=== PATIENT | female | born 2000 | race Caucasian/White ===

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

== ENCOUNTER → 2022-04-01 | Outpatient (CLI) | payer BC ==
[~2022-04-01] MED LIST: TAYTULLA 1 MG-1 EACH PO
[2022-04-01 14:17] LABS: BASO # 0.12 K/mm3 (0.02-0.10); EOS # 0.75 K/mm3 (0.04-0.40); HEMOGLOBIN 15.1 g/dL (12.0-15.0); LYMPH# 2.19 K/mm3 (1.20-3.40); MEAN CELL VOLUME 94 fl (78-95); MEAN CORPUSCULAR HEMOGLOBIN 31 pg (26-32); MEAN CORPUSCULAR HGB CONC 33 g/dL (33-37); MEAN PLATELET VOLUME 9.8 fl (7.4-10.4); PLATELET COUNT 277 K/mm3 (130-400); RED CELL DISTRIBUTION WIDTH 11.8 % (11.5-14.5); WHITE BLOOD COUNT 10.7 K/mm3 (4.8-10.8)
[2022-04-01 14:25] LABS: ALBUMIN 4.3 g/dL (3.5-5.0); POTASSIUM 4.1 mmol/L (3.5-5.1); SODIUM 137 mmol/L (136-145)
[2022-04-01 14:26] LABS: CALCIUM 9.5 mg/dL (8.3-10.5)
[2022-04-01 14:28] LABS: GLUCOSE 83 mg/dL (65-105); TOTAL PROTEIN 7.3 g/dL (6.4-8.3)
[2022-04-01 14:29] LABS: CARBON DIOXIDE 25 mmol/L (22-29); TOTAL BILIRUBIN 0.3 mg/dL (0.2-1.2)
[2022-04-01 14:33] LABS: AST-SGOT 15 U/L (5-34)
[2022-04-01 14:34] LABS: ALT/SGPT 13 U/L (0-55)
[2022-04-01 15:24] LABS: ERYTHROCYTE SEDIMENTATION RATE 12 mm/hr (0-20)
== END ==
LOC: LAB 14:02
PROVIDERS: Nurse Practitioner Family
DX: L28.2 Other prurigo (principal)

== ENCOUNTER → 2023-10-12 | Outpatient (CLI) | payer OTHER ==
[2023-10-12 19:05] LABS: PH-URINE 5.5 (5.0 - 8.0); URINE APPEARANCE CLOUDY (CLEAR); URINE BILIRUBIN NEGATIVE (NEGATIVE); URINE BLOOD TRACE-LYSED (NEGATIVE); URINE COLOR YELLOW (YELLOW); URINE GLUCOSE NEGATIVE (NEGATIVE); URINE KETONE NEGATIVE (NEGATIVE); URINE LEUKOCYTE ESTERASE NEGATIVE (NEGATIVE); URINE NITRATE NEGATIVE (NEGATIVE); URINE PROTEIN(semi-quant) 1+ (NEGATIVE)
[2023-10-12 19:06] LABS: URINE MUCUS PRESENT (NOT PRESENT)
== END ==
LOC: LAB 18:45
PROVIDERS: Nurse Practitioner Family
DX: N39.0 Urinary tract infection, site not specified (principal)

== ENCOUNTER → 2024-07-06 | Outpatient (CLI) | payer OTHER | LOC: RAD 14:58 | DX: M54.50 Low back pain, unspecified (principal) ==